=== PATIENT | female | born 1970 | race African-American/Black ===

== ENCOUNTER 2016-12-17 17:22 | Emergency (ER) | payer OTHER | END 2016-12-17 18:37 | disposition home or self-care (01) | LOC: ERS 17:22 | DX: J20.9 Acute bronchitis, unspecified (principal); G43.909 Migraine, unspecified, not intractable, without status migrainosus | CPT/HCPCS: 99283 ==

== ENCOUNTER 2017-06-03 22:03 | Emergency (ER) | payer OTHER ==
[2017-06-03] MEDS ORDERED: Ketorolac Tromethamine 30 MG/ML VIAL ONE (22:43)
== END 2017-06-03 23:00 | disposition home or self-care (01) ==
LOC: ERS 22:03
DX: K03.81 Cracked tooth (principal); G43.909 Migraine, unspecified, not intractable, without status migrainosus
CPT/HCPCS: 96372; J1885

== ENCOUNTER 2019-06-29 05:49 | Emergency (ER) | payer OTHER | END 2019-06-29 06:12 | disposition home or self-care (01) | LOC: ERS 05:49 | DX: K03.81 Cracked tooth (principal) | CPT/HCPCS: 99282 ==

== ENCOUNTER 2021-04-22 08:18 | Emergency (ER) | payer OTHER | END 2021-04-22 08:46 | disposition left against medical advice (07) | LOC: ERS 08:18 | DX: Z53.21 Procedure and treatment not carried out due to patient leaving prior to being seen by health care provider (principal) ==

== ENCOUNTER 2021-04-23 05:37 | Emergency (ER) | payer BC, OTHER | END 2021-04-23 06:02 | disposition home or self-care (01) | LOC: ERS 05:37 | DX: H61.21 Impacted cerumen, right ear (principal) | CPT/HCPCS: 69210 ==